=== PATIENT | female | born 1985 | race Caucasian/White ===

== ENCOUNTER → 2020-06-11 | Outpatient (CLI) | payer OTHER ==
[~2020-06-11] MED LIST: CLARITIN10 MG PO; COLACE 100MG C100 MG PO; GLUCOPHAGE500 MG PO; IBUPROFEN600 MG PO; NORCO 5-325 TA1 EACH PO; PROVERA10 MG PO; RANITIDINE HCL150 MG PO
== END ==
LOC: KOH-I 13:43
DX: M79.672 Pain in left foot (principal)
CPT/HCPCS: 73630

== ENCOUNTER → 2020-07-13 | Outpatient (CLI) | payer OTHER | LOC: KOH-I 11:01 | DX: M84.375A Stress fracture, left foot, initial encounter for fracture (principal) | CPT/HCPCS: 73630 ==

== ENCOUNTER → 2021-09-28 | Outpatient (CLI) | payer OTHER ==
[~2021-09-28] MED LIST changes: +FARXIGA10 MG PO; +LOSARTAN POTASS50 MG PO; +PROTONIX 40 MG40 M1 PO; +ROBAXIN 750 MG750 MG PO
[2021-09-28 09:41] LABS: RED BLOOD COUNT 5.22 M/UL (4.00-5.10); WHITE BLOOD COUNT 9.6 K/UL (4.5-11.0)
[2021-09-28 10:08] LABS: BUN/CREATININE RATIO 19 (0-10)
== END ==
LOC: OPSV2 08:00
PROVIDERS: Obstetrics & Gynecology
DX: Z01.812 Encounter for preprocedural laboratory examination (principal); N93.9 Abnormal uterine and vaginal bleeding, unspecified
CPT/HCPCS: 36415; 80053; 81001; 85025

== ENCOUNTER → 2021-10-04 | Day surgery (SDC) | payer OTHER ==
[~2021-10-04] MED LIST changes: +HYDROCODON-ACE1 EAC4 PO; +IBUPROFEN800 MG PO
== END | disposition home or self-care (01) ==
LOC: OR 08:05
DX: N85.01 Benign endometrial hyperplasia (principal); N93.9 Abnormal uterine and vaginal bleeding, unspecified; I10 Essential (primary) hypertension; K21.9 Gastro-esophageal reflux disease without esophagitis; E11.9 Type 2 diabetes mellitus without complications; G47.30 Sleep apnea, unspecified; F41.9 Anxiety disorder, unspecified; Z99.89 Dependence on other enabling machines and devices; Z68.43 Body mass index [BMI] 50.0-59.9, adult; Z79.899 Other long term (current) drug therapy
CPT/HCPCS: 82962; 84703; J1100; J1885; J2001; J2250; J2405; J2704; J2795; J3010